=== PATIENT | male | born 1955 | race Caucasian/White ===

== ENCOUNTER 2016-12-02 12:29 | Observation (INO) | payer MEDICAID, OTHER ==
[~2016-12-02] VITALS: Ht 172.7 cm; Wt 83.6 kg
[~2016-12-02 12:29] MED LIST: NAPR-260 PO; TRAM50TA2 PO
[2016-12-02] MEDS ORDERED: SOD CHLORIDE 0.9% 1,000 ML IV STA (12:51)
[2016-12-02] MEDS ORDERED: NITROGLYCERIN (SL) 0.4 MG TAB SL PRN (13:00)
[2016-12-02] MEDS ORDERED: ASPIRIN 325 MG TAB PO STA (13:17)
--- NOTE | 2016-12-02 13:24 | RADRPT ---
PROCEDURE: XR Chest. CLINICAL INDICATION: Chest pain TECHNIQUE: Chest AP portable. COMPARISON: 04/07/2016 FINDINGS: The mediastinal structures are unremarkable. The heart is normal in size and configuration. The pu lmonary vascularity is normal. The lung lima are unremarkable. No consolidation is identified. The pleural spaces are unremarkable. The axial skeleton is unremarkable. IMPRESSION: No active intrathoracic disease. RPTAT: HGDB .Nilson Cox MD, MD Date Time Electronically viewed and signed by .Nilson Cox MD, on 12/02/2016 13:23 .B/
[2016-12-02 13:33] LABS: ADD SCAN DIFF NO
[2016-12-02 13:43] LABS: BASOPHIL # 0.1 10^3/ul (0.0-0.1); BASOPHILS % 1.1 % (0.0-2.0); EOSINOPHILS # 0.9 10^3/ul (0.0-0.5); EOSINOPHILS % 9.5 % (0.0-7.0); HEMATOCRIT 49.7 % (42.0-52.0); HEMOGLOBIN 16.4 g/dl (14.0-18.0); LYMPHOCYTES # 2.6 10^3/ul (0.8-2.9); LYMPHOCYTES % 27.8 % (15.0-51.0); MEAN CORPUSCULAR HEMOGLOBIN 28.2 pg (29.0-33.0); MEAN CORPUSCULAR VOLUME 85.5 fl (82.0-101.0); MEAN PLATELET VOLUME 9.3 fl (7.4-10.4); MONOCYTE # 0.7 10^3/ul (0.3-0.9); MONOCYTES % 7.5 % (0.0-11.0); NEUTROPHIL # 5.1 10^3/ul (1.6-7.5); NEUTROPHILS % 53.8 % (39.0-77.0); PLATELET COUNT 235 10^3/UL (140-415); RED BLOOD COUNT 5.81 10^6/ul (4.70-6.10); RED CELL DISTRIBUTION WIDTH 13.1 % (11.5-14.5); WHITE BLOOD COUNT 9.4 10^3/ul (4.8-10.8)
[2016-12-02 13:56] LABS: ALBUMIN 5.1 g/dl (3.3-4.9); CHLORIDE 104 mmol/L (97-110); INR 0.89; PT RATIO 0.9
[2016-12-02 13:57] LABS: PARTIAL THROMBOPLASTIN TIME 30.5 Sec (25.0-35.0); POTASSIUM 3.7 mmol/L (3.5-5.1); SODIUM 138 mmol/L (135-144)
[2016-12-02 13:59] LABS: ALBUMIN/GLOBULIN RATIO 1.75; ALKALINE PHOSPHATASE 104 IU/L (42-121); ANION GAP 11 (8-16); ASPARTATE AMINO TRANSFERASE 26 IU/L (15-46); BILIRUBIN,INDIRECT 0.4 mg/dl (0-1.1); BILIRUBIN,TOTAL 0.4 mg/dl (0.2-1.3); BLOOD UREA NITROGEN 11 mg/dl (7-20); CARBON DIOXIDE 27 mmol/L (21-31); CREATININE 0.62 mg/dl (0.61-1.24)
[2016-12-02 14:00] LABS: CALCIUM 9.8 mg/dl (8.4-10.2); GLUCOSE 107 mg/dl (70-220)
[2016-12-02 14:12] LABS: TROPONIN-I < 0.012 ng/ml (0.00-0.12)
[2016-12-02 14:17] LABS: ALANINE AMINOTRANSFERASE 35 IU/L (13-69)
--- NOTE | 2016-12-02 14:51 | ERA ---
ER Documentation Chief Complaint Date/Time DATE: 12/02/16 TIME: 14:48 Chief Complaint nausea left chest pain HPI This is a 60-year-old male who complains of about 3-4 hours ago of left-sided anterior chest burning type of sensation. The patient is a very bad historian. The patient says he drinks off and on and sometimes heavy. He did drink yesterday did smoke "a little bit of meth". He denies any methamphetamine use today. He says he had the pain in his chest and felt shortness of breath. He says he has no pain in the epigastric region or abdominal area. He has no palpitations no radiation of pain no pain in the jaw shoulders arms. ROS All systems reviewed and are negative except as per history of present illness. Medications Home Meds Discontinued Scripts Naproxen* (Naprosyn*) 500 Mg Tablet, 500 MG PO BID Y for PAIN AND/OR INFLAMMATION, #30 TAB Prov:VARSHA LOBO PA-C 04/07/16 Tramadol HCl (Tramadol HCl) 50 Mg Tablet, 50 MG PO Q4 Y for PAIN, #20 TAB Prov:VARSHA LOBO PA-C 04/07/16 Allergies Allergies: Coded Allergies: No Known Allergy (Unverified , 12/02/16) PMhx/Soc Medical and Surgical Hx: pt denies Medical Hx History of Surgery: Yes (Foot surgery) Anesthesia Reaction: No Hx Neurological Disorder: No Hx Respiratory Disorders: No Hx Cardiac Disorders: No Hx Psychiatric Problems: No Hx Miscellaneous Medical Probl: No Hx Alcohol Use: Yes (Drank last night.) Hx Substance Use: No Hx Tobacco Use: No Smoking Status: Never smoker FmHx Family History: No coronary disease Physical Exam Vitals Vital Signs Date Time Temp Pulse Resp B/P Pulse Ox O2 Delivery O2 Flow Rate FiO2 12/02/16 14:07 69 13 137/90 99 Room Air 12/02/16 12:57 0 12/02/16 12:32 98.1 85 18 155/92 98 Physical Exam Const: Well-developed, well-nourished Head: Atraumatic, normocephalic Eyes: Normal Conjunctiva, PERRLA, EOMI, normal sclera, no nystagmus ENT: Normal External Ears, Nose and Mouth, moist mucus membranes. Neck: Full range of motion. No meningismus, no lymphadenopathy. Resp: Clear to auscultation bilaterally, no wheezing, rhonchi, rales Cardio: Regular rate and rhythm, no murmurs, S1 S2 present, there is no reproducible chest pain to palpation Abd: Soft, non tender x 4, non distended. Normal bowel sounds, no guarding or rebound, no pulsitile abdominal masses or bruits Skin: No petechiae or rashes, no ecchymosis , no maculopapular rash Back: No midline or flank tenderness Ext: No cyanosis, or edema, FROM x 4, normal inspection, neurovascularly intact x 4 Neur: Awake and alert, STR 5/5 x 4, sensation intact x 4, no focal findings, cerebellum intact Psych: Normal Mood and Affect Result Diagram: 12/02/16 1309 12/02/16 1309 Results 24 hrs Laboratory Tests Test 12/02/16 13:09 White Blood Count 9.410^3/ul Red Blood Count 5.8110^6/ul Hemoglobin 16.4g/dl Hematocrit 49.7% Mean Corpuscular Volume 85.5fl Mean Corpuscular Hemoglobin 28.2pg Mean Corpuscular Hemoglobin Concent 33.0g/dl Red Cell Distribution Width 13.1% Platelet Count 20170^3/UL Mean Platelet Volume 9.3fl Neutrophils % 53.8% Lymphocytes % 27.8% Monocytes % 7.5% Eosinophils % 9.5% Basophils % 1.1% Nucleated Red Blood Cells % 0.0/100WBC Neutrophils # 5.110^3/ul Lymphocytes # 2.610^3/ul Monocytes # 0.710^3/ul Eosinophils # 0.910^3/ul Basophils # 0.110^3/ul Nucleated Red Blood Cells # 0.010^3/ul Prothrombin Time 12.0Sec Prothrombin Time Ratio 0.9 INR International Normalized Ratio 0.89 Activated Partial Thromboplast Time 30.5Sec Sodium Level 138mmol/L Potassium Level 3.7mmol/L Chloride Level 104mmol/L Carbon Dioxide Level 27mmol/L Anion Gap 11 Blood Urea Nitrogen 11mg/dl Creatinine 0.62mg/dl Glucose Level 107mg/dl Calcium Level 9.8mg/dl Total Bilirubin 0.4mg/dl Direct Bilirubin 0.00mg/dl Indirect Bilirubin 0.4mg/dl Aspartate Amino Transf (AST/SGOT) 26IU/L Alanine Aminotransferase (ALT/SGPT) 35IU/L Alkaline Phosphatase 104IU/L Troponin I < 0.012ng/ml Total Protein 8.0g/dl Albumin 5.1g/dl Globulin 2.90g/dl Albumin/Globulin Ratio 1.75 Current Medications Medications (Trade) Dose Ordered Sig/Alex Route PRN Reason Start Time Stop Time Status Last Admin Dose Admin Sodium Chloride (NS) 1,000 ml @ 1,000 mls/hr Q1H STAT IV 12/02/16 12:51 12/02/16 13:50 DC 12/02/16 13:17 Nitroglycerin (Nitroglycerin (Sl Tab) 0.4 Mg) 1 tab Q5M UP TO 3 DOSES PRN SL CHEST PAIN 12/02/16 13:00 12/02/16 13:17 Aspirin (Aspirin) 325 mg ONCE STAT PO 12/02/16 13:17 12/02/16 13:18 DC 12/02/16 13:39 Procedures/MDM PROCEDURE: XR Chest. CLINICAL INDICATION: Chest pain TECHNIQUE: Chest AP portable. COMPARISON: 04/07/2016 FINDINGS: The mediastinal structures are unremarkable. The heart is normal in size and configuration. The pulmonary vascularity is normal. The lung lima are unremarkable. No consolidation is identified. The pleural spaces are unremarkable. The axial skeleton is unremarkable. IMPRESSION: No active intrathoracic disease. RPTAT: HGDB .Nilson Cox MD, MD Date Time Electronically viewed and signed by .Nilson Cox MD, MD on 12/02/2016 13:23 .B/ CC: HEIDI GARZON DO EKG: Rate/Rhythm: Normal sinus rhythm with inferior and anterior ischemic changes with flipped T waves QRS, ST, QT: NORMAL SD, QRS, QT] Impression: Abnormal EKG Give aspirin and was given 1 sublingual nitroglycerin with complete relief of his chest pain. Due to the fact the use amphetamines yesterday he does have ischemic changes on his EKG we will admit for rule out cardiac workup Patient's symptoms are concerning for cardiac cause will require inpatient workup and continuous monitoring. Further w/u for ischemia, arrhythmia, PE or dissection will be deferred to the inpatient team. Accepting Care Team: Current data and ongoing care discussed. Time: Time of admission Primary Provider: Consulting: [XOXOXKurt] Outstanding Data: none Departure Diagnosis: Primary Impression: Chest pain Qualified Code: R07.9 - Chest pain, unspecified type Condition: Stable HEIDI GARZON DO December 02, 2016 14:51
[2016-12-02] MEDS ORDERED: ACETAMINOPHEN 325 MG TAB PO PRN (15:00)
[2016-12-02] MEDS ORDERED: ONDANSETRON 4 MG INJ IV PRN (15:00)
--- NOTE | 2016-12-02 16:11 | HP ---
Date/Time of Note Date/Time of Note DATE: 12/02/16 TIME: 16:05 Assessment/Plan VTE Prophylaxis VTE Prophylaxis Intervention: LMWH Lines/Catheters IV [facility]ter [facility] (from [facility]): Peripheral IV Assessment/Plan Assessment/Plan 60-year-old male admitted for the following 1. Chest pain rule out acute coronary syndrome 2. Abnormal EKG 3. Substance abuse [ methamphetamine] plan: Plan: * Telemetry admission, trend cardiac enzymes, 2d echo if none recently and possible cardiology consult for stress test. * oxygen and nitroglycerin therapy as needed. * Daily aspirin if no allergy or bleeding risk * Get lipid profile, magnesium and TSH levels in am. * Further interventions per clinical course. Prophylaxis: Lovenox and H2 blockers. HPI/ROS Admit Date/Time Admit Date/Time 12/02/16 Hx of Present Illness PRESENTING COMPLAINT: chest pain HISTORY OF PRESENTING COMPLAINT: This is a 60-year-old male who complains of about 3-4 hours ago of left-sided anterior chest burning type of sensation. The patient is a very bad historian. The patient says he drinks off and on and sometimes heavy. He did drink yesterday did smoke "a little bit of meth". He denies any methamphetamine use today. He says he had the pain in his chest and felt shortness of breath. He says he has no pain in the epigastric region or abdominal area. He has no palpitations no radiation of pain no pain in the jaw shoulders arms. Give aspirin and was given 1 sublingual nitroglycerin with complete relief of his chest pain. ROS ROS: CONSTITUTIONAL: denies fever, chills, weight loss, weight gain HEENT: denies headaches, any vertigo, any sore throat or rhinorrhea. Eyes: No double or blurred vision or eye pain. GASTROINTESTINAL: The patient denies any nausea, vomiting, diarrhea or abdominal pain. GENITOURINARY: denies dysuria, frequency, urgency or hematuria. MUSCULOSKELETAL: also denies myalgias, arthralgias or edema. SKIN: denies rash or jaundice NEUROLOGIC: denies weakness, dizziness, focal neurological change or headache. PSYCHIATRIC: denies history of depression in the past, any suicidal ideation. substance abuse. ENDOCRINE: denies polyuria, polydipsia or hot or cold intolerance. HEMATOLOGIC: denies history of easy bruising, anemia or eczema. PMH/Family/Social Past Medical History Medical History: no pertinent history Past Surgical History * Foot surgery Family History Significant Family History: no pertinent family hx Social History Alcohol Use: occasionally Smoking Status: Never smoker Drug Use: other (methamphetamines) Exam/Review of Systems Vital Signs Vitals Vital Signs Date Time Temp Pulse Resp B/P Pulse Ox O2 Delivery O2 Flow Rate FiO2 12/02/16 14:07 69 13 137/90 99 Room Air 12/02/16 12:57 0 12/02/16 12:32 98.1 Exam Exam GENERAL: Patient is alert, oriented x 3, in no apparent distress; does not appear acutely or chronically ill. Patient is able to sit up unassisted.Patient makes good eye contact, is conversant, interactive, coherent. Patient appears calm and comfortable and is able to follow commands. HEENT: Oropharynx is clear. There is no carotid bruit, no masses. Patient's pupils are equal, round and reactive to light bilaterally. Extraocular motions are intact. There is no scleral icterus. There is no facial asymmetry. NECK: Supple. LUNGS: Clear to auscultation bilaterally with good air entry. No Wheezes or crackles. HEART: S1, S2. No murmur, gallops or rubs. Regular rate and rhythm. ABDOMEN: Soft, nontender. Normoactive bowel sounds. There are no stigmata of chronic liver disease. BACK: no costovertebral angle tenderness. GENITOURINARY: Deferred. EXTREMITIES: No edema. There is no cyanosis, clubbing. There are 2+ pulses bilaterally distally. NEUROLOGIC: The patient has no lateralizing signs. Cranial nerves II-XII are intact. SKIN: Otherwise, unremarkable. Labs Result Diagram: 12/02/16 1309 12/02/16 1309 Procedures Procedures Laboratory Tests Test 12/02/16 13:09 White Blood Count 9.410^3/ul Red Blood Count 5.8110^6/ul Hemoglobin 16.4g/dl Hematocrit 49.7% Mean Corpuscular Volume 85.5fl Mean Corpuscular Hemoglobin 28.2pg Mean Corpuscular Hemoglobin Concent 33.0g/dl Red Cell Distribution Width 13.1% Platelet Count 38833^3/UL Mean Platelet Volume 9.3fl Neutrophils % 53.8% Lymphocytes % 27.8% Monocytes % 7.5% Eosinophils % 9.5% Basophils % 1.1% Nucleated Red Blood Cells % 0.0/100WBC Neutrophils # 5.110^3/ul Lymphocytes # 2.610^3/ul Monocytes # 0.710^3/ul Eosinophils # 0.910^3/ul Basophils # 0.110^3/ul Nucleated Red Blood Cells # 0.010^3/ul Prothrombin Time 12.0Sec Prothrombin Time Ratio 0.9 INR International Normalized Ratio 0.89 Activated Partial Thromboplast Time 30.5Sec Sodium Level 138mmol/L Potassium Level 3.7mmol/L Chloride Level 104mmol/L Carbon Dioxide Level 27mmol/L Anion Gap 11 Blood Urea Nitrogen 11mg/dl Creatinine 0.62mg/dl Glucose Level 107mg/dl Calcium Level 9.8mg/dl Total Bilirubin 0.4mg/dl Direct Bilirubin 0.00mg/dl Indirect Bilirubin 0.4mg/dl Aspartate Amino Transf (AST/SGOT) 26IU/L Alanine Aminotransferase (ALT/SGPT) 35IU/L Alkaline Phosphatase 104IU/L Troponin I < 0.012ng/ml Total Protein 8.0g/dl Albumin 5.1g/dl Globulin 2.90g/dl Albumin/Globulin Ratio 1.75 Current Medications Medications (Trade) Dose Ordered Sig/Alex Route PRN Reason Start Time Stop Time Status Last Admin Dose Admin Sodium Chloride (NS) 1,000 ml @ 1,000 mls/hr Q1H STAT IV 12/02/16 12:51 12/02/16 13:50 DC 12/02/16 13:17 1,000 MLS/HR Nitroglycerin (Nitroglycerin (Sl Tab) 0.4 Mg) 1 tab Q5M UP TO 3 DOSES PRN SL CHEST PAIN 12/02/16 13:00 12/02/16 13:17 1 TAB Aspirin (Aspirin) 325 mg ONCE STAT PO 12/02/16 13:17 12/02/16 13:18 DC 12/02/16 13:39 325 MG Ondansetron HCl (Zofran Inj) 4 mg ER BRIDGE PRN IV NAUSEA AND/OR VOMITING 12/02/16 15:00 12/03/16 14:59 Acetaminophen (Tylenol Tab) 650 mg ER BRIDGE PRN PO MILD PAIN/FEVER 12/02/16 15:00 12/03/16 14:59 PROCEDURE: XR Chest. CLINICAL INDICATION: Chest pain TECHNIQUE: Chest AP portable. COMPARISON: 04/07/2016 FINDINGS: The mediastinal structures are unremarkable. The heart is normal in size and configuration. The pulmonary vascularity is normal. The lung lima are unremarkable. No consolidation is identified. The pleural spaces are unremarkable. The axial skeleton is unremarkable. IMPRESSION: No active intrathoracic disease. RPTAT: HGDB .Nilson Cox MD, MD Date Time Electronically viewed and signed by .Nilson Cox MD, MD on 12/02/2016 13:23 .B/ CC: HEIDI GARZON DO DELPHINE NGO December 02, 2016 16:11
[2016-12-02 18:21] VITALS: BP 158/87; RESP 16
[2016-12-02 18:27] VITALS: PULSE 67
[2016-12-02 18:45] LABS: BARBITURATES NEGATIVE (NEGATIVE); BENZODIAZEPINES NEGATIVE (NEGATIVE); CANNABINOIDS NEGATIVE (NEGATIVE); COCAINE NEGATIVE (NEGATIVE); OPIATES NEGATIVE (NEGATIVE)
[2016-12-02 19:33] VITALS: Ht 172.7 cm; Wt 83.6 kg
[2016-12-02 19:34] VITALS: BP 130/90; RESP 20
[2016-12-02 20:18] VITALS: PULSE 76
[2016-12-02 20:36] VITALS: BP 136/90; RESP 20
[2016-12-02 20:38] LABS: CREATINE KINASE 55 IU/L (23-200)
[2016-12-02 21:00] LABS: CK-MB 0.69 ng/ml (0.0-2.4); TROPONIN-I < 0.012 ng/ml (0.00-0.12)
[2016-12-03] VITALS (10 sets, daily range): BP systolic 118–137; BP diastolic 77–89; PULSE 57–64; RESP 18–20
[2016-12-03 04:25] LABS: ADD SCAN DIFF NO
[2016-12-03 04:27] LABS: BASOPHIL # 0.1 10^3/ul (0.0-0.1); BASOPHILS % 0.9 % (0.0-2.0); EOSINOPHILS # 1.2 10^3/ul (0.0-0.5); EOSINOPHILS % 14.1 % (0.0-7.0); HEMATOCRIT 44.6 % (42.0-52.0); HEMOGLOBIN 14.7 g/dl (14.0-18.0); LYMPHOCYTES # 2.5 10^3/ul (0.8-2.9); LYMPHOCYTES % 29.1 % (15.0-51.0); MEAN CORPUSCULAR HEMOGLOBIN 28.5 pg (29.0-33.0); MEAN CORPUSCULAR VOLUME 86.4 fl (82.0-101.0); MEAN PLATELET VOLUME 9.3 fl (7.4-10.4); MONOCYTE # 0.8 10^3/ul (0.3-0.9); MONOCYTES % 8.6 % (0.0-11.0); NEUTROPHIL # 4.1 10^3/ul (1.6-7.5); NEUTROPHILS % 47.2 % (39.0-77.0); PLATELET COUNT 202 10^3/UL (140-415); RED BLOOD COUNT 5.16 10^6/ul (4.70-6.10); RED CELL DISTRIBUTION WIDTH 13.2 % (11.5-14.5); WHITE BLOOD COUNT 8.7 10^3/ul (4.8-10.8)
[2016-12-03 04:48] LABS: INR 0.97; PROTIME 12.9 Sec (12.2-14.2)
[2016-12-03 04:49] LABS: PARTIAL THROMBOPLASTIN TIME 29.7 Sec (25.0-35.0)
[2016-12-03 04:57] LABS: CREATINE KINASE 48 IU/L (23-200)
[2016-12-03 04:58] LABS: BILIRUBIN,INDIRECT 0.6 mg/dl (0-1.1); BILIRUBIN,TOTAL 0.6 mg/dl (0.2-1.3); CALCIUM 9.2 mg/dl (8.4-10.2); CREATININE 0.7 mg/dl (0.61-1.24); POTASSIUM 4.1 mmol/L (3.5-5.1); TOTAL PROTEIN 6.5 g/dl (6.1-8.1)
[2016-12-03 05:19] LABS: CK-MB 0.53 ng/ml (0.0-2.4); TROPONIN-I < 0.012 ng/ml (0.00-0.12)
[2016-12-03 05:27] LABS: THYROID STIMULATING HORMONE 5.95 MIU/L (0.465-4.680)
--- NOTE | 2016-12-03 11:58 | DS ---
Date/Time of Note Date/Time of Note DATE: 12/03/16 TIME: 11:58 Discharge Summary Admission/Discharge Info Admit Date/Time December 02, 2016 at 14:54 Discharge Date/Time Final Diagnosis 60-year-old male admitted for the following 1. Chest pain: Resolved ACS ruled out 2. Abnormal EKG 3. Substance abuse [ methamphetamine]: status post cessation counseling 4. Subclinical hypothyroidism . Patient Condition: Stable Hx of Present Illness PRESENTING COMPLAINT: chest pain HISTORY OF PRESENTING COMPLAINT: This is a 60-year-old male who complains of about 3-4 hours ago of left-sided anterior chest burning type of sensation. The patient is a very bad historian. The patient says he drinks off and on and sometimes heavy. He did drink yesterday did smoke "a little bit of meth". He denies any methamphetamine use today. He says he had the pain in his chest and felt shortness of breath. He says he has no pain in the epigastric region or abdominal area. He has no palpitations no radiation of pain no pain in the jaw shoulders arms. Give aspirin and was given 1 sublingual nitroglycerin with complete relief of his chest pain. Hospital Course Patient was admitted and ruled out with 3 negative cardiac enzymes for an acute coronary syndrome. He also had a 2D echocardiogram done that showed an EF of 65% without significant valvular stenosis or regurgitation. Lipid screen was consistent with a mild dyslipidemia and was found to have a consistently elevated TSH but normal T3 and T4 levels the patient was counseled on the need to quit amphetamines use. I spoke with the flower planter who read the echo and I given him a history from the patient unable while he did not see the patient he did feel like the patient was stable for outpatient follow-up and this is fine with the patient as well the patient is encouraged to follow-up with his primary care physician as soon as possible to either have a cardiology consultation will continue close monitoring if his symptoms recur. Again the need to quit amphetamine use was heavily stressed. Patient verbalized understanding and willingness to try. He refused resources stating he was an occasional user and did not feel he was addicted to amphetamine use. He was started on a baby aspirin daily on a low-dose statin for dyslipidemia he was also encouraged to follow-up with his primary doctor for a TSH within 3-6 months. Home Meds Active Scripts Aspirin* (Aspirin* EC) 81 Mg Tablet., 81 MG PO DAILY for 30 Days, TAB 2 Refills Prov:DELPHINE NGO. 12/03/16 Atorvastatin* (Atorvastatin*) 40 Mg Tablet, 40 MG PO HS for 30 Days, TAB 2 Refills Prov:DELPIHNE NGO. 12/03/16 Discontinued Scripts Naproxen* (Naprosyn*) 500 Mg Tablet, 500 MG PO BID Y for PAIN AND/OR INFLAMMATION, #30 TAB Prov:VARSHA LOBO PA-C 04/07/16 Tramadol HCl (Tramadol HCl) 50 Mg Tablet, 50 MG PO Q4 Y for PAIN, #20 TAB Prov:VARSHA LOBO PA-C 04/07/16 Follow-up Plan Follow-up with primary care physician within 1-2 weeks to ensure continued resolution of symptoms now for repeat TSH check within 3-6 months. You may benefit from cardiology referral, discuss this with your primary care doctor. Primary Care Provider Care Physician No Primary Time spent on discharge: < 30 minutes Pending Labs Laboratory Tests Test 12/02/16 13:09 12/02/16 18:05 12/02/16 19:55 12/03/16 04:22 White Blood Count 9.410^3/ul (4.8-10.8) 8.710^3/ul (4.8-10.8) Red Blood Count 5.8110^6/ul (4.70-6.10) 5.1610^6/ul (4.70-6.10) Hemoglobin 16.4g/dl (14.0-18.0) 14.7g/dl (14.0-18.0) Hematocrit 49.7% (42.0-52.0) 44.6% (42.0-52.0) Mean Corpuscular Volume 85.5fl (82.0-101.0) 86.4fl (82.0-101.0) Mean Corpuscular Hemoglobin 28.2pg (29.0-33.0) 28.5pg (29.0-33.0) Mean Corpuscular Hemoglobin Concent 33.0g/dl (32.0-37.0) 33.0g/dl (32.0-37.0) Red Cell Distribution Width 13.1% (11.5-14.5) 13.2% (11.5-14.5) Platelet Count 45371^3/UL (140-415) 35538^3/UL (140-415) Mean Platelet Volume 9.3fl (7.4-10.4) 9.3fl (7.4-10.4) Neutrophils % 53.8% (39.0-77.0) 47.2% (39.0-77.0) Lymphocytes % 27.8% (15.0-51.0) 29.1% (15.0-51.0) Monocytes % 7.5% (0.0-11.0) 8.6% (0.0-11.0) Eosinophils % 9.5% (0.0-7.0) 14.1% (0.0-7.0) Basophils % 1.1% (0.0-2.0) 0.9% (0.0-2.0) Nucleated Red Blood Cells % 0.0/100WBC (0.0-0.0) 0.0/100WBC (0.0-0.0) Neutrophils # 5.110^3/ul (1.6-7.5) 4.110^3/ul (1.6-7.5) Lymphocytes # 2.610^3/ul (0.8-2.9) 2.510^3/ul (0.8-2.9) Monocytes # 0.710^3/ul (0.3-0.9) 0.810^3/ul (0.3-0.9) Eosinophils # 0.910^3/ul (0.0-0.5) 1.210^3/ul (0.0-0.5) Basophils # 0.110^3/ul (0.0-0.1) 0.110^3/ul (0.0-0.1) Nucleated Red Blood Cells # 0.010^3/ul (0.0-0.0) 0.010^3/ul (0.0-0.0) Prothrombin Time 12.0Sec (12.2-14.2) 12.9Sec (12.2-14.2) Prothrombin Time Ratio 0.9 1.0 INR International Normalized Ratio 0.89 0.97 Activated Partial Thromboplast Time 30.5Sec (25.0-35.0) 29.7Sec (25.0-35.0) Sodium Level 138mmol/L (135-144) 137mmol/L (135-144) Potassium Level 3.7mmol/L (3.5-5.1) 4.1mmol/L (3.5-5.1) Chloride Level 104mmol/L (97-110) 107mmol/L (97-110) Carbon Dioxide Level 27mmol/L (21-31) 26mmol/L (21-31) Anion Gap 11 (8-16) 8 (8-16) Blood Urea Nitrogen 11mg/dl (7-20) 13mg/dl (7-20) Creatinine 0.62mg/dl (0.61-1.24) 0.70mg/dl (0.61-1.24) Glucose Level 107mg/dl (70-220) 93mg/dl (70-220) Calcium Level 9.8mg/dl (8.4-10.2) 9.2mg/dl (8.4-10.2) Total Bilirubin 0.4mg/dl (0.2-1.3) 0.6mg/dl (0.2-1.3) Direct Bilirubin 0.00mg/dl (0.00-0.20) 0.00mg/dl (0.00-0.20) Indirect Bilirubin 0.4mg/dl (0-1.1) 0.6mg/dl (0-1.1) Aspartate Amino Transf (AST/SGOT) 26IU/L (15-46) 20IU/L (15-46) Alanine Aminotransferase (ALT/SGPT) 35IU/L (13-69) 30IU/L (13-69) Alkaline Phosphatase 104IU/L (42-121) 69IU/L (42-121) Troponin I < 0.012ng/ml (0.00-0.12) < 0.012ng/ml (0.00-0.12) < 0.012ng/ml (0.00-0.12) Total Protein 8.0g/dl (6.1-8.1) 6.5g/dl (6.1-8.1) Albumin 5.1g/dl (3.3-4.9) 4.0g/dl (3.3-4.9) Globulin 2.90g/dl (1.3-3.2) Albumin/Globulin Ratio 1.75 Urine Opiates Screen NEGATIVE (NEGATIVE) Urine Barbiturates NEGATIVE (NEGATIVE) Urine Amphetamines Screen POSITIVE (NEGATIVE) Urine Benzodiazepines Screen NEGATIVE (NEGATIVE) Urine Cocaine Screen NEGATIVE (NEGATIVE) Urine Cannabinoids NEGATIVE (NEGATIVE) Creatine Kinase 55IU/L (23-200) 48IU/L (23-200) Creatine Kinase Index 1.3 1.1 Creatinine Kinase MB (Mass) 0.69ng/ml (0.0-2.4) 0.53ng/ml (0.0-2.4) Hemoglobin A1c 5.6% (0-5.9) Triglycerides Level 171mg/dl (0-149) Cholesterol Level 197mg/dl (100-200) LDL Cholesterol, Calculated 114mg/dl HDL Cholesterol 49mg/dl (30-78) Cholesterol/HDL Ratio 4.0RATIO Thyroid Stimulating Hormone (TSH) 5.950MIU/L (0.465-4.680) DELPHINE NGO Dec 03, 2016 11:58
[2016-12-03] MEDS ORDERED: ATOR40TA68 PO (14:07)
[2016-12-03] MEDS ORDERED: ASPI-664 PO (14:07)
--- NOTE | 2016-12-03 14:09 | PDOCDIS ---
Discharge Instructions DIAGNOSIS Discharge Diagnosis: Chest pain CONDITION Patient Condition: Stable HOME CARE INSTRUCTIONS: Diet Instructions: Low Fat /CholesterolSpecial Diet: low chol low fat ACTIVITY: Activity Restrictions: Slowly Increase Activity Rest between Activity FOLLOW UP/APPOINTMENTS Appointments Followup with your primary doctor within the next 1-2 weeks. If you don't have one please let someone know, we can give you resources that may help you pick one. You may call Dr Niraj Fonseca's office. he's accepting new patients Name, Degree: Niraj Fonseca MD Specialty: Internal Medicine Comments: Office Address: [address] [place] [address] [place], [place] [phone] Office Office You may also call your insurance company to assign one to you. Review your medication list with your nurse before leaving and if you need new prescriptions please let your nurse know. I may have made changes to your home medications or given you new prescriptions , please let your primary doctor know as well. Stay compliant with your medications and report any side effects to your PCP or pharmacist. Return to the ER if you have any concerns and cannot reach your doctors or call your insurance company, they usually have a nurse that can help you. OTHER ORDERS: Other Orders: QUIT AMPHETAMINE USE!! DELPHINE NGO Dec 03, 2016 14:09
[2016-12-03 15:22] LABS: T3 UPTAKE 32.9 % (23.5-40.5)
[2016-12-03 15:41] LABS: THYROID STIMULATING HORMONE 6.39 MIU/L (0.465-4.680)
--- NOTE | 2016-12-03 17:23 | RADRPT ---
Echocardiogram Report Patient Name: LEANNE SILVA Gender: Male Date: 1955 Study Date: 03-Dec-2016 Control Tower Operator: Micky [facility] Location: 6B Ref. Physician: DELPHINE NGO Quality: Adequate Procedures: Transthoracic echocardiogram with complete 2D, M-Mode, and doppler examination. Indications: Chest Pain. 2D/M Mode Doppler Measurement Value Normal Ranges Measurement Value Normal Ranges LVIDd 2D 5.3 3.5 - 5.6 cm AV Peak Anthony 1.3 m/sec LVIDs 2D 3.4 2.1 - 4.1 cm AV Peak PG 6.3 mmHg LVPWd 2D 0.9 0.6 - 1.1 cm LVOT Peak Anthony 1.2 m/sec IVSd 2D 0.9 0.6 - 1.1 cm LVOT Peak PG 5.4 mmHg AoR Diam 2D 3.1 2.0 - 3.7 cm MV E Peak Anthony 0.6 m/sec EDV 2D 136.8 cm3 MV A Peak Anthony 0.6 m/sec ESV 2D 38.1 cm3 MV E/A 1.0 LA Dimen 2D 3.7 2.3 - 4.0 cm MV Decel Time 277 msec MV Decel Bates 2 MV E/A 1.0 Findings Left Ventricle: Normal left ventricular systolic function. Normal left ventricular cavity size. Normal left ventricular wall thickness. Ejection fraction is visually estimated at 65 %. Tissue Doppler/Mitral Doppler indices are within normal limits. Right Ventricle: Normal right ventricular size. Normal right ventricular systolic function. Left Atrium: The left atrium is normal in size. Right Atrium: The right atrium is normal in size. Mitral Valve: Normal appearance of the mitral valve. Trace mitral regurgitation. Aortic Valve: Normal appearance of the aortic valve. No significant aortic stenosis or insufficiency. Tricuspid Valve: Normal appearance and function of the tricuspid valve with trace physiologic regurgitation. Pulmonic Valve: Pulmonic valve not well visualized. There is trace pulmonic regurgitation. Pericardium: Normal pericardium with no significant pericardial effusion. Aorta: Normal aortic root. IVC: Normal size and poor respiratory collapse consistent with elevated right atrial pressure. Conclusions 1.Normal left ventricular systolic function. Normal left ventricular cavity size. Normal left ventricular wall thickness. Ejection fraction is visually estimated at 65 %. Tissue Doppler/Mitral Doppler indices are within normal limits. 2.No significant valvular stenosis or regurgitation seen. 3.PAP could not be estimated. RA pressure is 3 mmHg. Electronically Signed By: Nolan Nolasco 03-Dec-2016 17:22:50 -0700 Patient Name: LEANNE SILVA Study Date: 03-Dec-[id number]
[2016-12-03] MEDS ORDERED: ATORVASTATIN 40 MG TAB PO SCH (21:00)
== END 2016-12-03 18:55 | disposition home or self-care (01) ==
LOC: E/R 12:29 → TEL 14:54
PROVIDERS: ADMIT Internal Medicine; ATTEND Internal Medicine
DX: R07.9 Chest pain, unspecified (principal); R94.31 Abnormal electrocardiogram [ECG] [EKG]; F15.10 Other stimulant abuse, uncomplicated; E03.9 Hypothyroidism, unspecified
CPT/HCPCS: 36415; 71010; 80048; 80053; 80061; 80076; 80307; 82550; 82553; 83036; 84436; 84443; 84479; 84484; 85025; 85610; 85730; 93005; 93306; J7030; Z7500; Z7502; Z7610; G0378